=== PATIENT | female | born 1985 | race Caucasian/White ===

== ENCOUNTER 2024-09-12 16:24 | Emergency (ER) | payer OTHER, SELFPAY ==
--- NOTE | ~2024-09-12 | CT_ITS ---
CLINICAL HISTORY: sudden onset of headache during orgasm CT Head without contrast. CT angiography head and neck with contrast. 3D Postprocessing. Comparison: None Findings: HEAD CT: No intra-axial mass, midline shift, hydrocephalus, or acute hemorrhage. No significant atrophy-like change or white matter disease. There is no sinus or mastoid fluid. The orbits are within normal limits. No skull fracture. HEAD AND NECK CTA: Aortic arch and cervical great vessels are patent. Intracranial arteries are patent. No aneurysm, dissection, or occlusion. Hypoplastic right A1 segment SILVER. No abnormal intracranial enhancement. Small subcentimeter nodule in the left thyroid gland. Lung apices clear. Straightening of the cervical lordosis. Multilevel spondylosis with osteophytosis, uncovertebral hypertrophy, facet arthropathy and degenerative disc disease. Scattered prominent lymph nodes throughout the neck, may be reactive however are nonspecific. IMPRESSION: 1. Unremarkable head CT. 2. Patent head and neck CTA. If clinical concern persists consider follow-up MRI. This document has been electronically signed by: Elliot Perez MD on 09/12/2024 19:44:14
[2024-09-12 16:40] VITALS: BP 147/83; PULSE 84; RESP 18; TEMP 36.1; O2SAT 100; BMI 28.2
--- NOTE | 2024-09-12 16:40 | ED.HA ---
HPI - Headache General Chief Complaint: Headache Stated Complaint: thunder clap during orgasm x 3 Time Seen by Provider: 09/12/24 18:00 Related Data Allergies Allergy/AdvReac Type Severity Reaction Status Date / Time No Known Allergies Allergy Verified 09/12/24 16:42 [facility] Social History Social History Substance Use Type: Marijuana Physical Exam Vital Signs: Vital Signs: Last Vital Signs Temp 97.9 F 09/12/24 20:03 Pulse 75 09/12/24 20:03 Resp 18 09/12/24 20:03 BP 107/68 09/12/24 20:03 Pulse Ox 100 09/12/24 20:03 O2 Del Method Room Air 09/12/24 20:03 BMI result Body Mass Index 28.2 Course Course Course Narrative: This is an RME performed by Christian Marin CNP: Additional HPI, ROS, PE not included below will be deferred to primary provider. Patient is a 39-year-old female who presents emergency department for evaluation, has been experiencing a thunderclap headache , during orgasm x 3 days. Lasting a few hours post coitus. Concentrated to front of forehead on the left, described as coming in pulses and in waves without history of typical headaches/migraines. No history of similar occurence during intercourse. No use of anticoagulants or known coagulation disorders. Denies dizziness, lightheadedness, vision changes, neck, chest pain. NIH stroke score O. Plan: Serum labs, CT head, viral serologies See additional note dated from Dr. Mo 09/12/2024 Reevaluation(s) Reevaluation #1: 39-year-old female came in for evaluation after having severe headache while orgasm for the past 3 days the the headache waxes and wanes now the headache is 3/10, no nausea, no vomiting, no photophobia, no neck stiffness, normal neuro exam, CT head and neck angio shows no acute aneurysm or AV malformation. Instructed to follow-up with PCP. Time: 19:56 Medications Administered Discontinued Medications Generic Name Dose Route Start Last Admin Trade Name Freq PRN Reason Stop Dose Admin Iohexol 100 ml 09/12/24 18:48 09/12/24 18:48 Iohexol 350 Mg/Ml 100 Ml Infus..Btl IV 09/12/24 18:49 70 ml ONCE ONE Administration Medical Decision Making Differential Diagnosis Differential Diagnoses: The differential diagnosis associated with the presentation includes ( Intracranial bleed, cerebral aneurysm, severe anemia, electrolyte derangement.) Admission/Observation Consideration of admission/observation: Escalation of care including admission/observation considered Lab Data MDM Lab Attestation statement: I reviewed the patient's lab results. 09/12/24 17:01 09/12/24 17:01 Labs: Lab Results 09/12/24 Range/Units 17:01 WBC 7.5 (4.8-10.8) X10*3/uL RBC 4.22 (4.20-5.50) X10*6/uL Hgb 12.8 (12.0-16.0) g/dl Hct 36.5 L (37.0-47.0) % MCV 86.5 (80.0-98.0) fL MCH 30.3 (27.0-33.0) pg MCHC 35.1 H (31.0-35.0) g/dl RDW 12.7 (11.0-16.0) % Plt Count 202 (160-400) X10*3/uL MPV 9.2 L (9.4-12.3) fL Immature Gran % (Auto) 0.1 (0.0-0.4) % Neut % (Auto) 60.0 (45-73) % Lymph % (Auto) 31.2 (20-40) % [place] % (Auto) 5.6 (2-11) % Eos % (Auto) 2.7 (0-4) % Baso % (Auto) 0.4 (0-2) % Lymph # (Auto) 2.3 (1.2-4.9) X10*3/uL [place] # (Auto) 0.4 (0.1-1.2) X10*3/uL Eos # (Auto) 0.2 (0.0-0.4) X10*3/uL Baso # (Auto) 0.0 (0.0-0.2) X10*3/uL Abs Immat Gran (auto) 0.01 (0.00-0.03) X10*3/uL Absolute Neuts (auto) 4.5 (2.0-8.3) x10*3/uL Absolute Nucleated RBC 0.000 (0.0-0.012) X10*3/uL Nucleated RBC % (auto) 0.0 (0.0-0.2) /100WBC ESR 11 (0-20) MM/HR Sodium 140 (135-145) mmol/L Potassium 3.7 (3.3-5.1) mmol/L Chloride 106 (96-108) mmol/L Carbon Dioxide 24 (22-29) mmol/L Anion Gap 14 (12-20) BUN 8 L (9-16) mg/dL Creatinine 0.67 (0.5-1.4) mg/dL Estim Creat Clear Calc 109.5 Estimated GFR > 60 Random Glucose 95 (60-115) mg/dL Calcium 9.2 (8.4-10.2) mg/dL Total Bilirubin 0.9 (0.0-1.0) mg/dL AST 26 (5-31) U/L ALT 16 (0-31) U/L Alkaline Phosphatase 65 (39-117) U/L C-Reactive Protein 0.10 (< or = 0.50) mg/dL Total Protein 7.0 (6.5-8.0) g/dL Albumin 4.2 (3.5-5.0) g/dL Beta HCG, Quant < 2 mIU/mL Influenza Type A (PCR) NEGATIVE (Negative) Influenza Type B (PCR) NEGATIVE (Negative) RSV RNA Qual (PCR) NEGATIVE (Negative) SARS-CoV-2 RNA (RT-PCR) NEGATIVE (Negative) Independent Interpretation I performed an independent interpretation of an: CT Scan ( CT a head and neck:. Unremarkable head CT. 2. Patent head and neck CTA. If clinical concern persists consider follow-up MRI.) Radiology Impression Discussion of test interpretation with radiology: I have reviewed the radiologist's reading. Discharge Plan Discharge Clinical Impression: Headache Patient Disposition: Home, Self-Care Instructions: Acute Headache (ED) Referrals: Coleen Garza MD [Physician] - Group,[facility] [Physician] - Interventions: ED Discharge Assessment Last Done: 09/12/24 20:03 Discharge Date/Time: 09/12/24 20:10 Print Language: Moroccan
[2024-09-12 17:17] LABS: MANUAL DIFF FLAG NO
[2024-09-12 17:21] LABS: Basophils Percent Auto 0.4 % (0-2); Eosinophils Absolute Auto 0.2 X10*3/uL (0.0-0.4); Eosinophils Percent Auto 2.7 % (0-4); Hematocrit 36.5 % (37.0-47.0); Hemoglobin 12.8 g/dl (12.0-16.0); Imm Gran Abs Auto 0.01 X10*3/uL (0.00-0.03); Imm Gran Pct Auto 0.1 % (0.0-0.4); Lymphocytes Absolute Auto 2.3 X10*3/uL (1.2-4.9); Lymphocytes Percent Auto 31.2 % (20-40); Mean Corpuscular HGB Conc 35.1 g/dl (31.0-35.0); Mean Corpuscular Hemoglobin 30.3 pg (27.0-33.0); Mean Corpuscular Volume 86.5 fL (80.0-98.0); Mean Platelet Volume 9.2 fL (9.4-12.3); Monocytes Absolute Auto 0.4 X10*3/uL (0.1-1.2); Monocytes Percent Auto 5.6 % (2-11); Neutrophils Absolute Auto 4.5 x10*3/uL (2.0-8.3); Platelet Count 202 X10*3/uL (160-400); Red Blood Count 4.22 X10*6/uL (4.20-5.50); Red Cell Distribution Width 12.7 % (11.0-16.0); White Blood Count 7.5 X10*3/uL (4.8-10.8)
[2024-09-12 17:41] LABS: Alanine Aminotransferase 16 U/L (0-31); Albumin Level 4.2 g/dL (3.5-5.0); Alkaline Phosphatase 65 U/L (39-117); Anion Gap 14 (12-20); Aspartate Amino Transferase 26 U/L (5-31); Bilirubin Total 0.9 mg/dL (0.0-1.0); Blood Urea Nitrogen 8 mg/dL (9-16); Calcium 9.2 mg/dL (8.4-10.2); Carbon Dioxide 24 mmol/L (22-29); Chloride 106 mmol/L (96-108); Creatinine Clr Calc Pharmacy 109.5; Estimated Glomerular Filt Rate > 60; Glucose Random 95 mg/dL (60-115); Potassium 3.7 mmol/L (3.3-5.1); Sodium 140 mmol/L (135-145)
[2024-09-12 17:42] LABS: HCG Quantitative < 2 mIU/mL
[2024-09-12 17:57] LABS: Influenza A PCR NEGATIVE (Negative); Influenza B PCR NEGATIVE (Negative); Resp Syncy Virus RNA Qual PCR NEGATIVE (Negative); SARS COV2 PCR INHOUSE NEGATIVE (Negative)
--- NOTE | 2024-09-12 18:05 | ED_ITS ---
HPI - Headache General Chief Complaint: Headache Stated Complaint: thunder clap during orgasm x 3 Time Seen by Provider: 09/12/24 18:00 Source: patient and family Mode of arrival: ambulatory Limitations: no limitations History of Present Illness ED Provider: DR. Escalera HPI Narrative: 39-year-old female came in for evaluation of a sudden abrupt onset of headache started 3 days ago while she was having intercourse during her orgasm headache with lingering after the intercourse for 1 or 2 hours then get better, same episode of headache happen during orgasm yesterday, patient has no history of migraine or headaches in the past. Patient is concerned about it. Currently patient has 2 and 10 headache, no nausea, no vomiting, no blurry vision, no photophobia, no neck stiffness. Related Data Allergies Allergy/AdvReac Type Severity Reaction Status Date / Time No Known Allergies Allergy Verified 09/12/24 16:42 Review of Systems 2 Review of Systems: All other systems are reviewed and are negative Constitutional: Reports as per HPI and Reports no additional constitutional complaints Eyes: Reports as per HPI and Reports no additional eye complaints Reports system reviewed and no additional complaints, except as documented Cardiovascular: Reports as per HPI and Reports no additional cardiovascular complaints Respiratory: Reports as per HPI and Reports no additional respiratory complaints Gastrointestinal: Reports as per HPI and Reports no additional gastrointestinal complaints Genitourinary: Reports no additional female genitourinary complaints Musculoskeletal: Reports no additional musculoskeletal complaints Skin/Breast: Reports system reviewed and no additional complaints, except as docu Psychiatric: Reports no additional psychiatric complaints Endocrine: Reports no additional endocrine complaints Hematologic/Lymphatic: Reports no additional hematologic/lymphatic complaints Allergic/Immunologic: Reports no additional allergic/immunologic complaints Reports system reviewed and no additional complaints, except as documented and Reports Abnormal speech present [facility] Social History Social History Substance Use Type: Marijuana Physical Exam 2 Vital Signs: Vital Signs: Last Vital Signs Temp 97.9 F 09/12/24 20:03 Pulse 75 09/12/24 20:03 Resp 18 09/12/24 20:03 BP 107/68 09/12/24 20:03 Pulse Ox 100 09/12/24 20:03 O2 Del Method Room Air 09/12/24 20:03 BMI result Body Mass Index 28.2 Vital signs have been reviewed and appear to be correct. Blood pressure elevated. Heart rate normal. Respiratory rate normal. Temperature normal. Oxygen saturation normal. Appearance: Alert. Oriented X3. No acute distress. Head: Normal external exam. Normocephalic. Atraumatic. No Cannon signs noted. No raccoon eyes noted Eyes: PERRLA. EOMI. Conjunctiva and sclera normal. Eyelids normal. ENT: TM's Normal. Pharynx normal. Uvula midline. Moist mucous membranes. No trismus noted. No drooling noted. No muffled voice noted. Neck: Normal inspection. Neck supple. FROM. No adenopathy. Thyroid Normal. No meningeal signs. No neck mass noted. CVS: Normal heart rate and rhythm. Heart sound normal. No murmurs noted. Pulses normal throughout. Respiratory: No respiratory distress. Painless inspiration. Breath sounds normal. No wheezes/rales/rhonchi noted. Chest nontender. No accessory muscle usage noted or decreased air movement noted. Abdomen: Soft and nontender. Bowel sounds normal in all 4 quadrants. No distention noted. No organomegaly noted. No visible injury noted. Back: No CVA tenderness. Full range of motion noted. Skin: Skin warm and dry. Normal skin color. Normal skin turgor. No rashes/lesions/lacerations noted. Extremities: No lower extremity edema. Extremities exhibit normal range of motion. Extremities nontender. Neuro: Mental status: Normal attention, orientation, memory, and affect. Cranial nerves: Pupils are equal, round and reactive to light, EOMI, visual mazariegos are fall, face is symmetric, facial sensations are normal. Motor examination normal muscle tone, strength to 4 extremities. DTR are +2, planter's are flexor. Sensory exam; normal coordination, no ataxia, gait stable. Cerebellar exam: [id number] and [id number] is normal. Extrapyramidal system: No tremors, no rigidity with normal facial expressions. Pronator drift not present Course Reevaluation(s) Reevaluation #1: Feels better, almost no headache, no nausea, no vomiting, no neck stiffness. Time: 20:00 Medications Administered Discontinued Medications Generic Name Dose Route Start Last Admin Trade Name Freq PRN Reason Stop Dose Admin Iohexol 100 ml 09/12/24 18:48 09/12/24 18:48 Iohexol 350 Mg/Ml 100 Ml Infus..Btl IV 09/12/24 18:49 70 ml ONCE ONE Administration Medical Decision Making Differential Diagnosis Differential Diagnoses: The differential diagnosis associated with the presentation includes ( Abnormal subarachnoid hemorrhage, abnormal cerebral aneurysm, AVM, intracranial bleed, tension headache.) Admission/Observation Consideration of admission/observation: Escalation of care including admission/observation considered Lab Data MDM Lab Attestation statement: I reviewed the patient's lab results. 09/12/24 17:01 09/12/24 17:01 Labs: Lab Results 09/12/24 Range/Units 17:01 WBC 7.5 (4.8-10.8) X10*3/uL RBC 4.22 (4.20-5.50) X10*6/uL Hgb 12.8 (12.0-16.0) g/dl Hct 36.5 L (37.0-47.0) % MCV 86.5 (80.0-98.0) fL MCH 30.3 (27.0-33.0) pg MCHC 35.1 H (31.0-35.0) g/dl RDW 12.7 (11.0-16.0) % Plt Count 202 (160-400) X10*3/uL MPV 9.2 L (9.4-12.3) fL Immature Gran % (Auto) 0.1 (0.0-0.4) % Neut % (Auto) 60.0 (45-73) % Lymph % (Auto) 31.2 (20-40) % [place] % (Auto) 5.6 (2-11) % Eos % (Auto) 2.7 (0-4) % Baso % (Auto) 0.4 (0-2) % Lymph # (Auto) 2.3 (1.2-4.9) X10*3/uL [place] # (Auto) 0.4 (0.1-1.2) X10*3/uL Eos # (Auto) 0.2 (0.0-0.4) X10*3/uL Baso # (Auto) 0.0 (0.0-0.2) X10*3/uL Abs Immat Gran (auto) 0.01 (0.00-0.03) X10*3/uL Absolute Neuts (auto) 4.5 (2.0-8.3) x10*3/uL Absolute Nucleated RBC 0.000 (0.0-0.012) X10*3/uL Nucleated RBC % (auto) 0.0 (0.0-0.2) /100WBC ESR 11 (0-20) MM/HR Sodium 140 (135-145) mmol/L Potassium 3.7 (3.3-5.1) mmol/L Chloride 106 (96-108) mmol/L Carbon Dioxide 24 (22-29) mmol/L Anion Gap 14 (12-20) BUN 8 L (9-16) mg/dL Creatinine 0.67 (0.5-1.4) mg/dL Estim Creat Clear Calc 109.5 Estimated GFR > 60 Random Glucose 95 (60-115) mg/dL Calcium 9.2 (8.4-10.2) mg/dL Total Bilirubin 0.9 (0.0-1.0) mg/dL AST 26 (5-31) U/L ALT 16 (0-31) U/L Alkaline Phosphatase 65 (39-117) U/L C-Reactive Protein 0.10 (< or = 0.50) mg/dL Total Protein 7.0 (6.5-8.0) g/dL Albumin 4.2 (3.5-5.0) g/dL Beta HCG, Quant < 2 mIU/mL Influenza Type A (PCR) NEGATIVE (Negative) Influenza Type B (PCR) NEGATIVE (Negative) RSV RNA Qual (PCR) NEGATIVE (Negative) SARS-CoV-2 RNA (RT-PCR) NEGATIVE (Negative) Independent Interpretation I performed an independent interpretation of an: CT Scan ( Head/ head and neck angio:1. Unremarkable head CT. 2. Patent head and neck CTA. If clinical concern persists consider follow-up MRI.) Radiology Impression Discussion of test interpretation with radiology: I have reviewed the radiologist's reading. Discharge Plan Discharge Clinical Impression: Headache Patient Disposition: Home, Self-Care Instructions: Acute Headache (ED) Referrals: Coleen Garza MD [Physician] - Group,[facility] [Physician] - Interventions: ED Discharge Assessment Last Done: 09/12/24 20:03 Discharge Date/Time: 09/12/24 20:10 Print Language: Danish
[2024-09-12 18:15] LABS: Erythrocyte Sedimentation Rate 11 MM/HR (0-20)
[2024-09-12] MEDS: iohexoL 350 MG/ML 100 ML INFUS..BTL IV (18:48)
[2024-09-12 19:47] VITALS: BP 107/68; PULSE 75; RESP 18; TEMP 36.6; O2SAT 100
[2024-09-12 20:03] VITALS: BP 107/68; PULSE 75; RESP 18; TEMP 36.6; O2SAT 100
== END 2024-09-12 20:10 | disposition home or self-care (01) ==
PROVIDERS: Nurse Practitioner Family; Emergency Provider Emergency Medicine; PCP Family Medicine
DX: R51.9 Headache, unspecified (principal); Z03.818 Encounter for observation for suspected exposure to other biological agents ruled out
CPT/HCPCS: 0241U; 70496; 70498; 80053; 84702; 85025; 85652; 86140; 99284; Q9967

== ENCOUNTER → 2024-09-12 18:04 | Outpatient (BNV) | payer OTHER, SELFPAY | PROVIDERS: Emergency Provider Emergency Medicine; Visit Provider Radiology Diagnostic Radiology | DX: R51.9 Headache, unspecified (principal) | CPT/HCPCS: 70496; 70498 ==

== ENCOUNTER 2025-04-14 17:14 | Emergency (ER) | payer OTHER, SELFPAY ==
--- NOTE | ~2025-04-14 | US_ITS ---
CLINICAL HISTORY: gb, liver cbd US abdomen limited Comparison: None provided Findings: The liver is normal in size and echotexture. There is no intrahepatic bile duct dilatation. The common duct is 2 mm in diameter. The gallbladder is normal. There is no sonographic Carpio sign. The main portal vein is antegrade. IMPRESSION: Unremarkable limited abdominal ultrasound. This document has been electronically signed by: Pawel Aguilar MD on 04/14/2025 23:01:50
--- NOTE | ~2025-04-14 | US_ITS ---
CLINICAL HISTORY: 18 weeks . cramping pain. miscarraige? US OB 1st trimester transabdominal Comparison: None provided Findings: Single intrauterine . Femur length: 2.6 cm EGA: 18 weeks, 0 days. MELONIE: September 15, 2025. Cardiac activity: 167 bpm. Placenta is anterior in position. activity is noted. IMPRESSION: Single intrauterine estimated 18 weeks, 0 days gestational age by today's ultrasound criteria. This document has been electronically signed by: Bay Smart MD on 04/14/2025 20:06:38
[2025-04-14 18:41] VITALS: BP 139/59; PULSE 96; RESP 20; TEMP 36.7; O2SAT 100; BMI 30.9
--- NOTE | 2025-04-14 18:46 | ED_ITS ---
HPI - General Adult General Chief complaint: Nausea/Vomiting/Diarrhea Stated complaint: vomiting ( 18wks) Time Seen by Provider: 04/14/25 22:36 Source: patient Limitations: no limitations History of Present Illness ED Provider: Nereyda Day PA-C HPI narrative: 39-year-old female who is currently 18 weeks , presents with nausea vomiting. Patient developed symptoms today, she has had multiple episodes. She has been using Zofran and doxylamine with good relief of her high for emesis gravidarum. She states today her symptoms are atypical. Denies associated upper abdominal pain, she has been having some cramping of the lower abdomen. Denies vaginal bleeding. She did have recent cough and cold symptoms, no fevers. No diarrhea. Patient does have some degree of postprandial symptoms within an hour of eating, however no abdominal pain is elicited. Related Data Allergies Allergy/AdvReac Type Severity Reaction Status Date / Time No Known Allergies Allergy Verified 04/14/25 18:46 Review of Systems 2 Review of Systems: Yes all other systems are reviewed and are negative Constitutional: Constitutional: Denies fatigue and Denies fever(s) Cardiovascular: Cardiovascular: Denies chest pain and Denies dyspnea Respiratory: Respiratory: Denies dyspnea Gastrointestinal: Gastrointestinal: Denies abdominal pain, Reports GI cramping, Denies diarrhea, Reports nausea and Reports vomiting Genitourinary: Genitourinary: Denies dysuria, Denies pelvic pain and Denies vaginal discharge Endocrine: Endocrine: Denies fatigue PMFSH Past Medical History Attestation statement: The following information was validated with the patient. Social History Social History Substance Use Type: Marijuana Advance Directives: No Advance Directives Information Provided: Yes Do you have a plan to hurt others: No Plan Physical Exam ED Vital Signs: Vital Signs - 24 hr 04/14/25 18:41 04/14/25 22:27 Temperature 98.0 F 97.8 F Pulse Rate 96 83 Respiratory Rate 20 16 Blood Pressure 139/59 L 93/54 L Pulse Oximetry 100 98 Oxygen Delivery Method Room Air Room Air BMI result Body Mass Index 30.9 Const Other: Alert well-appearing Orientation/consciousness: patient oriented x3 Resp Effort & Inspection: normal respiratory effort Cardio Other: Normal peripheral perfusion GI Other: Abdomen is soft, nontender no guarding Skin Other: Warm dry no rash Neuro General: patient oriented x3, gait normal, no focal motor deficits and CN's II- XI intact bilaterally Psych Other: Cooperative Course Course Course Narrative: RME: 39-year-old female entering weeks presents to ED for vomiting and lower abdominal cramping. Patient denies any vaginal discharge or vaginal bleeding. Ultrasound labs ordered Medications Administered Discontinued Medications Generic Name Dose Route Start Last Admin Trade Name Moreno PRN Reason Stop Dose Admin Lactated Ringer's 1,000 mls @ 999 mls/hr 04/14/25 22:45 04/15/25 00:58 Lr IV 04/14/25 23:45 Infused .Q1H1M ANITHA Infusion Ondansetron HCl 4 mg 04/14/25 22:35 04/14/25 23:18 Ondansetron Hcl 4 Mg/2 Ml Vial IVPUSH 04/14/25 22:36 4 mg ONCE ONE Administration Medical Decision Making Medical Decision Making [facility] Narrative: 39-year-old female who is currently 18 weeks , presents with nausea vomiting. Patient developed symptoms today, she has had multiple episodes. She has been using Zofran and doxylamine with good relief of her high for emesis gravidarum. She states today her symptoms are atypical. Denies associated upper abdominal pain, she has been having some cramping of the lower abdomen. Denies vaginal bleeding. She did have recent cough and cold symptoms, no fevers. No diarrhea. Patient does have some degree of postprandial symptoms within an hour of eating, however no abdominal pain is elicited. Problem: 18 weeks History: Per patient I have considered the following differential diagnoses: Biliary colic, cholecystitis, gastritis/GERD, HELLP, cholestasis, viral syndrome Plan: Screening labs including an obstetric ultrasound were ordered from triage, the patient has a new slight elevation and some of her liver function test. Given concurrent , I am most concerned for potential biliary colic, obtaining an ultrasound of the right upper quadrant. Giving Zofran and fluids. Thought about HELLP syndrome, however the patient is hemodynamically stable, there was no thrombocytopenia, she is not anemic I have independently reviewed the following tests: Labs: No overt leukocytosis, not anemic, no electrolyte abnormality, LFTs minimally elevated, quant 24,589 Obstetric ultrasound: Ultrasound right upper quadrant: Findings: Single intrauterine . Femur length: 2.6 cm EGA: 18 weeks, 0 days. MELONIE: September 15, 2025. Cardiac activity: 167 bpm. Placenta is anterior in position. activity is noted. IMPRESSION: Single intrauterine estimated 18 weeks, 0 days gestational age by today's ultrasound criteria. The liver is normal in size and echotexture. There is no intrahepatic bile duct dilatation. The common duct is 2 mm in diameter. The gallbladder is normal. There is no sonographic Carpio sign. The main portal vein is antegrade. IMPRESSION: Unremarkable limited abdominal ultrasound. Given the ultrasound of the right upper quadrant was normal, the patient could also have cholestasis, I have advised that she could speak with her narcotics and/or vice detective about implementing ursodiol if her symptoms persist. Differential Diagnosis Differential Diagnoses: The differential diagnosis associated with the presentation includes See [facility] Admission/Observation Consideration of admission/observation: Escalation of care including admission/observation considered Not applicable Lab Data [facility] Lab Attestation statement: I reviewed the patient's lab results. 04/14/25 19:16 04/14/25 19:16 Labs: Lab Results 04/14/25 04/14/25 Range/Units 19:16 22:34 WBC 9.0 (4.8-10.8) X10*3/uL RBC 3.99 L (4.20-5.50) X10*6/uL Hgb 12.3 (12.0-16.0) g/dl Hct 35.3 L (37.0-47.0) % MCV 88.5 (80.0-98.0) fL MCH 30.8 (27.0-33.0) pg MCHC 34.8 (31.0-35.0) g/dl RDW 14.0 (11.0-16.0) % Plt Count 216 (160-400) X10*3/uL MPV 9.2 L (9.4-12.3) fL Immature Gran % (Auto) 0.6 H (0.0-0.4) % Neut % (Auto) 91.8 H (45-73) % Lymph % (Auto) 3.7 L (20-40) % [place] % (Auto) 3.6 (2-11) % Eos % (Auto) 0.0 (0-4) % Baso % (Auto) 0.3 (0-2) % Lymph # (Auto) 0.3 L (1.2-4.9) X10*3/uL [place] # (Auto) 0.3 (0.1-1.2) X10*3/uL Eos # (Auto) 0.0 (0.0-0.4) X10*3/uL Baso # (Auto) 0.0 (0.0-0.2) X10*3/uL Abs Immat Gran (auto) 0.05 H (0.00-0.03) X10*3/uL Absolute Neuts (auto) 8.2 (2.0-8.3) x10*3/uL Absolute Nucleated RBC 0.000 (0.0-0.012) X10*3/uL Nucleated RBC % (auto) 0.0 (0.0-0.2) /100WBC Smear Tech's Comments VERIFIED PT 12.5 (11.2-13.5) SEC INR 1.0 (0.9-1.1) APTT 22.7 L (26.7-34.1) SEC Sodium 133 L (135-145) mmol/L Potassium 3.9 (3.3-5.1) mmol/L Chloride 105 (96-108) mmol/L Carbon Dioxide 21 L (22-29) mmol/L Anion Gap 11 L (12-20) BUN 10 (9-16) mg/dL Creatinine 0.52 (0.5-1.4) mg/dL Estim Creat Clear Calc 147.5 Estimated GFR > 60 Random Glucose 96 (60-115) mg/dL Calcium 8.6 D (8.4-10.2) mg/dL Total Bilirubin 1.4 H (0.0-1.0) mg/dL AST 49 H (5-31) U/L ALT 72 H (0-31) U/L Alkaline Phosphatase 71 (39-117) U/L Total Protein 6.7 (6.5-8.0) g/dL Albumin 4.0 (3.5-5.0) g/dL Lipase 34 (8-78) U/L Beta HCG, Quant 21787 mIU/mL Urine Color Yellow Urine Appearance Clear Urine pH 6.0 (5.0-9.0) Ur Specific [place] <= 1.005 (1.005-1.025) Urine Protein Negative (Neg-Trace) mg/dL Urine Glucose (UA) Negative (Negative) mg/dL Urine Ketones Trace (Negative) mg/dL Urine Blood Negative (Negative) Urine Nitrite Negative (Negative) Ur Leukocyte Esterase Negative (Negative) Radiology Impression Discussion of test interpretation with radiology: I have reviewed the radiologist's reading. Discharge Plan Discharge Clinical Impression: Nausea & vomiting, and not yet delivered in second trimester Patient Disposition: Home, Self-Care Instructions: Acute Nausea and Vomiting (ED), at 15 to 18 Weeks (ED) Additional Instructions: Overall, your screening labs were normal, you had a subtle elevation and some of your liver enzymes. This can occur in , it can be due to a sluggish and biliary system, called cholestasis. . I would speak with your narcotics and/or vice detective about implementing a medication to help with this suspect diagnosis. You may also simply have underlying viral syndrome. The ultrasound of the liver and gallbladder was normal. The obstetric ultrasound was normal as well. Interventions: ED Discharge Assessment Last Done: 04/15/25 01:01 Discharge Date/Time: 04/15/25 01:02 Print Language: Panamanian
[2025-04-14 19:46] LABS: Hematocrit 35.3 % (37.0-47.0); Hemoglobin 12.3 g/dl (12.0-16.0); Imm Gran Abs Auto 0.05 X10*3/uL (0.00-0.03); Imm Gran Pct Auto 0.6 % (0.0-0.4); Lymphocytes Absolute Auto 0.3 X10*3/uL (1.2-4.9); Mean Corpuscular HGB Conc 34.8 g/dl (31.0-35.0); Mean Corpuscular Hemoglobin 30.8 pg (27.0-33.0); Mean Corpuscular Volume 88.5 fL (80.0-98.0); NRBC Abs Auto 0.000 X10*3/uL (0.0-0.012); NRBC Pct Auto 0.0 /100WBC (0.0-0.2); Platelet Count 216 X10*3/uL (160-400); Red Blood Count 3.99 X10*6/uL (4.20-5.50); SCAN SMEAR FLAG 1; White Blood Count 9.0 X10*3/uL (4.8-10.8)
[2025-04-14 19:47] LABS: MANUAL DIFF FLAG SCAN
[2025-04-14 20:01] LABS: Alanine Aminotransferase 72 U/L (0-31); Albumin Level 4.0 g/dL (3.5-5.0); Alkaline Phosphatase 71 U/L (39-117); Anion Gap 11 (12-20); Aspartate Amino Transferase 49 U/L (5-31); Blood Urea Nitrogen 10 mg/dL (9-16); Calcium 8.6 mg/dL (8.4-10.2); Carbon Dioxide 21 mmol/L (22-29); Chloride 105 mmol/L (96-108); Creatinine Clr Calc Pharmacy 147.5; Estimated Glomerular Filt Rate > 60; Lipase 34 U/L (8-78); Potassium 3.9 mmol/L (3.3-5.1); Sodium 133 mmol/L (135-145); Total Protein 6.7 g/dL (6.5-8.0)
[2025-04-14 20:11] LABS: INTERNATIONAL NORM RATIO 1.0 (0.9-1.1); Prothrombin Time 12.5 SEC (11.2-13.5)
[2025-04-14 20:15] LABS: Partial Thromboplastin Time 22.7 SEC (26.7-34.1)
--- OUTSIDE RECORDS SUMMARY | 2025-04-14 22:12 | XMS_ITS | Encounter Summary ---
Author Organization [facility] Address [address] [place] [address] [place] [id number] Phone Care Team Providers Care Senior Capital Markets Specialist Name Role Phone Carol De La Rosa MACHINE MAINTENANCE Primary Care Provider Encounter Details Date Type Department Care Team (Late st Contact Info) Description 12/16/2024 Procedure Pass [facility] Endoscopy Admitting Dept Virtual Department [address] [place] [address] Social History Tobacco Use Types Packs/Day Years Used Date Smoking Tobacco: Never Smokeless Tobacco: Never Alcohol Use Standard Drinks/Week Comments Not Currently 0 (1 standard drink = 0.6 oz pur e alcohol) Education Answer Date Recorded Are you interested in more education? Not on khoa e 09/07/2022 Are you concerned about learning? Not on file 09/07/2022 No 09/07/2022 No 09/07/2022 Digital Access Answer Date Recorded No 10/05/2022 No 10/05/2022 No 10/05/2022 Reliable internet access at home? Not on file 10/05/2022 Device with a working camera? Not on file Comments No Sex and Gender Information Value Date Recorded Sex Assigned at Not on file Legal Sex Female 9:09 PM EDT Gender Identity Not on file Sexual Orientation Not on file documented as of this encounter Plan of Treatment Not on file documented as of this encounter Visit Diagnoses Not on filedocumented in this encounter Care Teams Senior Capital Markets Specialist Relationship Specialty Start Date End Date Carol De La Rosa NP [address] [place] [id number] PCP - General Family Medicine 11/27/21 documented as of this encounter Additional Source Comments The information contained in this document represents components of the legal health record. It is not the complete legal health record.[facility]
--- OUTSIDE RECORDS SUMMARY | 2025-04-14 22:12 | XMS_ITS | Clinical Summary ---
Author Organization [facility] Address [address] [place] [address] [place] [phone] Phone Care Team Providers Care Bevel Gear Generator Operator Name Role Phone Carol De La Rosa CRIME SCENE EVIDENCE TECHNICIAN Primary Care Provider Allergies Active Allergy Reactions Criticality Noted Date Comments Animal Dander 12/06/2021 Ragweed 12/06/2021 Medications cetirizine (ZYRTEC) 10 MG tablet Take 10 mg by mouth daily. Active citalopram (CELEXA) 10 MG tablet Take 10 mg by mouth daily. Active Active Problems No known active problems Social History Tobacco Use Types Packs/Day Years [...] on file Sexual Orientation Not on file Last Filed Vital Signs Vital Sign Reading Time Taken Comments Blood Pressure 94/60 12/08/2021 9:45 AM EDT Pulse 64 12/08/2021 9:17 AM EDT Temperature 36.4 C (97.5 F) 12/08/2021 9:45 AM EDT Respiratory Rate 16 12/08/2021 9:17 AM EDT Oxygen Saturation 100% 12/08/2021 9:45 AM EDT Inhaled Oxygen Concentration - - Weight 70.8 kg (156 lb) 12/06/2021 1:37 PM EDT Height 160 cm (5' 3 ) 12/06/2021 1:37 PM EDT Body Mass Index 27.63 12/06/2021 1:37 PM EDT Plan of Treatment Health Maintenance Due Date Last Done Comments DEPRESSION SCREENING 1999 HEPATITIS C SCREENING 08/09/2005 HIV ONE-TIME SCREENING (18-65 YEARS) 08/09/2005 PAP SMEAR 08/09/2008 Adult Td,Tdap Booster 08/12/2019 08/11/2009, 000 INFLUENZA VACCINE (#1) 2024 , 01/04/2017, 02/13/2016, Additional history exists COVID-19 VACCINE ( season) 2025 04/28/2021, 09/02/2020, 08/12/2020 MENINGOCOCCAL VACCINES (ACWY) Aged Out 10/16/2005 No longer eligible based on patient's age to complete this topic HEPATITIS A VACCINES Aged Out 09/20/2009 No long er eligible based on patient's age to complete this topic SMOKING STATUS SCREENING (Once After 26 Yrs) Completed 12/08/2021 HIB VACCINES Aged Out No longer eligi ble based on patient's age to complete this topic MENINGOCOCCAL VACCINES (B) Aged Out N o longer eligible based on patient's age to complete this topic PNEUMOCOCCAL VACCINES (0-49 years) Aged Out No longer eligible based on patient's age to complete this topic Medical Devices Not on file Insurance [facility] [id number] [place] [address] [facility] Care Teams Bevel Gear Generator Operator Relationship Specialty Start Date End Date Carol De La Rosa NP [address] [place] [address] PCP - General Family Medicine 11/27/21 Additional Source Comments The information contained in this document represents components of the legal health record. It is not the complete legal health record.[facility]
--- OUTSIDE RECORDS SUMMARY | 2025-04-14 22:12 | XMS_ITS | Encounter Summary ---
Author Organization [facility] Address [address] [place] [address] [place] [phone] Phone Care Team Providers Care Ore Fielder Name Role Phone Carol De La Rosa DELIVERY REP Primary Care Provider Encounter Details Date Type Department Care Team (Late st Contact Info) Description 05/27/2024 Transcribe Orders [facility] [address] [place] [address] Shaan Carpio MD [address] [place] [phone] [email or web address] Social History Tobacco Use Types Packs/Day Years [...] on filedocumented in this encounter Care Teams Ore Fielder Relationship Specialty Start Date End Date Aierstuck, Carol Alfaro, DELIVERY REP [address] [place] [address] PCP - General Family Medicine 11/27/21 documented as of this encounter Additional Source Comments The information contained in this document represents components of the legal health record. It is not the complete legal health record.[facility]
--- OUTSIDE RECORDS SUMMARY | 2025-04-14 22:12 | XMS_ITS | Encounter Summary ---
Author Organization [facility] Address [address] [facility] [address] [place] [phone] Phone Care Team Providers Care Media/Instructional Designer Name Role Phone Carol De La Rosa SHOWROOM CONSULTANT Primary Care Provider Encounter Details Date Type Department Care Team (Late st Contact Info) Description 12/08/2021 Procedure Pass [facility] Endoscopy Admitting Dept Virtual Department [address] [place] [address] Social History Tobacco Use Types Packs/Day Years Used Date Smoking Tobacco: Never Smokeless Tobacco: Never Alcohol Use Standard Drinks/Week Comments Not Currently 0 (1 standard drink = 0.6 oz pur e alcohol) Comments No Sex and Gender Information Value Date Recorded Sex Assigned at Not on file Legal Sex Female 9:09 PM EDT Gender Identity Not on file Sexual Orientation Not on file documented as of this encounter Plan of Treatment Not on file documented as of this encounter Visit Diagnoses Not on filedocumented in this encounter Care Teams Media/Instructional Designer Relationship Specialty Start Date End Date Carol De La Rosa NP [address] [place] [phone] PCP - General Family Medicine 11/27/21 documented as of this encounter Additional Source Comments The information contained in this document represents components of the legal health record. It is not the complete legal health record.[facility]
--- OUTSIDE RECORDS SUMMARY | 2025-04-14 22:12 | XMS_ITS | Encounter Summary ---
Author Organization [facility] Address [address] [facility] [address] [place] [phone] Phone Care Team Providers Care Supervisor Speech Name Role Phone Carol De La Rosa SUPERVISOR OF COMMUNICATIONS Primary Care Provider Encounter Details Date Type Department Care Team (Late st Contact Info) Description 12/16/2024 Hospital Encounter [facility] Endoscopy Admitting Dept Virtual Department [address] [place] [address] Geo Shanks MD [address] [phone] [email or web address] Social History Tobacco Use Types Packs/Day Years [...] on filedocumented in this encounter Care Teams Supervisor Speech Relationship Specialty Start Date End Date Carol De La Rosa NP [address] [place] [phone] PCP - General Family Medicine 11/27/21 documented as of this encounter Additional Source Comments The information contained in this document represents components of the legal health record. It is not the complete legal health record.[facility]
[2025-04-14 22:27] VITALS: BP 93/54; PULSE 83; RESP 16; TEMP 36.6; O2SAT 98
[2025-04-14 22:44] LABS: Appearance Urine Clear; Glucose Urine UA Negative (Negative); PH 6.0 (5.0-9.0); Specific Gravity - Urine <= 1.005 (1.005-1.025)
[2025-04-14] MEDS: Lactated Ringers 1,000 ML 999 ML IV (23:18)
[2025-04-15 00:27] VITALS: BP 107/54; PULSE 85; RESP 16; TEMP 37; O2SAT 99
[2025-04-15 01:01] VITALS: BP 107/54; PULSE 85; RESP 16; TEMP 37; O2SAT 99
== END 2025-04-15 01:02 | disposition home or self-care (01) ==
PROVIDERS: Physician Assistant; Emergency Provider Emergency Medicine; PCP Nurse Practitioner Primary Care
DX: O21.9 Vomiting of pregnancy, unspecified (principal); O09.512 Supervision of elderly primigravida, second trimester; O26.892 Other specified pregnancy related conditions, second trimester; R10.9 Unspecified abdominal pain; Z3A.18 18 weeks gestation of pregnancy
CPT/HCPCS: 36415; 76705; 76815; 80053; 81003; 83690; 84702; 85025; 85610; 85730; 96361; 96374; 99284; J2405; J7120

== ENCOUNTER → 2025-04-14 18:45 | Outpatient (BNV) | payer OTHER, SELFPAY | PROVIDERS: PCP Nurse Practitioner Primary Care; Visit Provider Nuclear Medicine | DX: O26.892 Other specified pregnancy related conditions, second trimester (principal); R25.2 Cramp and spasm; Z3A.18 18 weeks gestation of pregnancy | CPT/HCPCS: 76705; 76815 ==